=== PATIENT | female | born 2005 | race Caucasian/White ===

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

== ENCOUNTER → 2024-06-23 14:04 | Outpatient (CLI) | payer BC, SELFPAY | PROVIDERS: Family Provider Family Medicine; PCP Family Medicine; Visit Provider Nurse Practitioner Family | DX: R30.0 Dysuria (principal) | CPT/HCPCS: 87086 ==

== ENCOUNTER 2024-06-25 08:38 | Emergency (ER) | payer BC, SELFPAY ==
[2024-06-25] VITALS (10 sets, daily range): BP systolic 102–129; BP diastolic 60–72; PULSE 60–95; RESP 12–16; TEMP 37.1–37.2; O2SAT 97–100; BMI 27.9
--- NOTE | 2024-06-25 08:57 | ED_ITS ---
HPI - Abdominal Pain General Chief Complaint: Back Pain/Injury Stated Complaint: kidney pain Time Seen by Provider: 06/25/24 08:44 History of Present Illness HPI narrative: Patient 19-year-old female history of depression anxiety not currently on medication presenting today with right flank pain. She reports it comes in waves going on for the last 5 days. She does feel nauseous at times no significant vomiting or fever. She is never previously had a kidney stone. Denies any painful frequent urination. Related Data Previous Rx's Medication Instructions Recorded epinephrine 0.3 mg/0.3 mL 0.3 mg (0.3 mL) IM PRN PRN 04/15/22 injection, auto-injector (EpiPen anaphylaxis #2 ea 2-Osvaldo) ondansetron 4 mg disintegrating 4 mg PO Q8H PRN nausea and 06/25/24 tablet vomiting #10 tabs Allergies Allergy/AdvReac Type Severity Reaction Status Date / Time venom-honey bee Allergy Severe ANAPHYLAXIS Verified 04/23/23 11:31 [bee venom (honey bee)] propranolol AdvReac Intermediate Nausea and Verified 04/23/23 11:31 vomiting Patient History Social History Smoking Status: Never smoker Smoking Status: Never smoker alcohol intake frequency: holidays/special occasions only Substance Use Type: does not use Exam Initial Vital Signs Initial Vital Signs: Vital Signs Temperature 98.7 F 06/25/24 08:50 Pulse Rate 94 H 06/25/24 08:50 Respiratory Rate 12 06/25/24 08:50 Blood Pressure 129/67 06/25/24 08:50 Pulse Oximetry 99 06/25/24 08:50 Oxygen Delivery Method Room Air 06/25/24 08:50 GENERAL: Alert 19-year-old female appears to not feel well and in no acute distress. HEENT: Head atraumatic,EOMI, pupils reactive, face symmetric, moist mucous membranes CARDIOVASCULAR: Regular rate and rhythm without murmurs, rubs or gallops. RESPIRATORY: Breath sounds equal bilaterally, no wheezes rales or rhonchi. ABDOMEN: Soft, mild right lower quadrant pain : Mild right flank pain EXTREMITIES: Normal range of motion, no clubbing or edema. Neurovascularly intact NEUROLOGICAL: Alert and oriented x4.Normal gait and speech. Cranial nerves II through XII grossly intact. SKIN: Warm, dry, no laceration, no petechiae, no rashes or lesions. Course Orders Ordered: Discontinued Medications Ketorolac Tromethamine (Ketorolac 30 Mg/Ml Vial) 15 mg IV NOW ONE Stop: 06/25/24 08:58 Last Admin: 06/25/24 09:08 Dose: 15 mg Documented By: VIV Ondansetron HCl (Ondansetron 4 Mg/2 Ml Inj) 4 mg IV NOW ONE Stop: 06/25/24 08:58 Last Admin: 06/25/24 09:07 Dose: 4 mg Documented By: VIV Vital Signs Vital signs: Vital Signs - 8 hr 06/25/24 10:30 06/25/24 10:30 06/25/24 11:00 Temperature Pulse Rate 67 68 Respiratory Rate Blood Pressure 102/60 Pulse Oximetry 98 97 Oxygen Delivery Method 06/25/24 11:00 06/25/24 11:14 06/25/24 11:30 Temperature 98.9 F Pulse Rate 60 Respiratory Rate 16 Blood Pressure 112/67 112/67 105/66 Pulse Oximetry 99 Oxygen Delivery Method Room Air 06/25/24 11:30 06/25/24 11:41 Temperature Pulse Rate 64 Respiratory Rate 16 Blood Pressure Pulse Oximetry 98 Oxygen Delivery Method MDM - Abdominal Pain Lab Data 06/25/24 09:11 06/25/24 09:11 Labs: Lab Results 06/25/24 Range/Units 09:11 WBC 4.3 L (4.5-11.0) X10^3/uL RBC 5.03 (4.0-5.2) X10^6/uL Hgb 13.9 (12.0-16.0) g/dL Hct 41.6 (36-46) % MCV 82.6 (80-100) fL MCH 27.6 (26-34) PG MCHC 33.5 (30-36) % RDW 14.5 (11.6-14.8) % Plt Count 260 (150-400) X10^3/uL Neut % (Auto) 56.5 (50-75) % Lymph % (Auto) 28.8 (25-40) % [place] % (Auto) 8.9 (3-14) % Eos % (Auto) 5.0 H (2-4) % Baso % (Auto) 0.8 (0-2) % Neut # (Auto) 2400 (3802-8752) /uL Lymph # (Auto) 1200 (4160-2420) /uL [place] # (Auto) 400 (0-900) /uL Eos # (Auto) 200 (0-450) /uL Baso # (Auto) 0 (0-100) /uL Sodium 138 (137-145) mmol/L Potassium 4.1 (3.4-5.1) mmol/L Chloride 108 H (98-107) mmol/L Carbon Dioxide 22 (22-32) mmol/L BUN 12 (7-17) mg/dL Creatinine 0.75 (0.52-1.04) mg/dL Estimated GFR > 60 (>60) mL/min BUN/Creatinine Ratio 16.0 (6-22) Glucose 107 H (70-100) mg/dL Calcium 9.3 (8.4-10.2) mg/dL Total Bilirubin 0.4 (0.2-1.3) mg/dL AST 20 (14-36) IU/L ALT 15 (<35) IU/L Alkaline Phosphatase 55 (38-126) U/L Total Protein 8.0 (6.3-8.2) g/dL Albumin 4.6 (3.5-5.0) g/dL Globulin 3.4 (1.7-4.1) g/dL Albumin/Globulin Ratio 1.4 (1.0-2.8) Lipase 52 (23-300) U/L Serum , Qual Negative (Negative) Point of care testing: Urine Dip Bedside Urine Glucose Negative Bedside Urine Bilirubin - Negative Bedside Urine Ketone - Negative Urine Specific [place] 1.025 Bedside Urine Occult Blood - Negative Bedside Urine pH 5.5 Bedside Urine Protein - Negative Bedside Urine Urobilinogen - Negative Bedside Urine Nitrite - Negative Bedside Urine Leukocytes - Negative Esterase Imaging Data CT scan - abdomen/pelvis: Radiologist's Impression: PROCEDURE: CT ABDOMEN PELVIS W CON INDICATIONS: right flank pain and RLQ pain TECHNIQUE: After the administration of intravenous contrast, axial sections acquired from the lung bases to the pubic symphysis. Coronal and sagittal reformats were performed. For radiation dose reduction, the following was used: automated exposure control, adjustment of mA and/or kV according to patient size. COMPARISON: None. FINDINGS: Lower thorax: The lung bases are clear. Heart size normal. No hiatal hernia. Liver: Normal in size and attenuation. No contour deformity present. Biliary system: No calcified cholelithiasis or pericholecystic inflammation. No intra or extrahepatic bile duct dilatation. Pancreas: Unremarkable without mass or inflammation evident. Spleen: Normal in size and density. Adrenals: Normal morphology and density. Reproductive system: Unremarkable as visualized. Urinary system: Normal renal size and attenuation. No renal calculi, hydronephrosis, or solid mass present. Urinary bladder unremarkable. Gastrointestinal system: The bowel is unremarkable without evidence of bowel obstruction or inflammation. The stomach appears unremarkable. Appendix: Normal appendix identified. No evidence of appendicitis. Peritoneal spaces: No mesenteric or retroperitoneal adenopathy. No free air. Small amount of free fluid in the right adnexa Vasculature: The IVC, aorta and iliac vasculature are unremarkable. Abdominal wall: Abdominal wall intact without evidence of ventral or inguinal hernias. Musculoskeletal: Normal bone mineralization. No acute fractures. IMPRESSION: Normal appendix. No evidence of appendicitis. Small amount of free fluid in the pelvis right adnexa Approved by: Karl Robbins M.D. on 06/25/2024 at 9:44 MDM Narrative Medical decision making narrative: MDM CC: Right flank pain Complicating co-morbidities: Depression anxiety no prior kidney stone Medical records reviewed: Presented to walk-in clinic yesterday for right flank pain. Urinalysis show +blood but no leukocytes or nitrates and diagnosed with an upper respiratory infection. Differential considered: Nephrolithiasis appendicitis, cholecystitis cholelithiasis Exam documented above, pertinent findings include: Appears to not feel well has some mild right lower quadrant pain and right flank pain vitals are stable Lab Test results independently reviewed as above. Pertinent findings: CBC WBC is 4.3 no anemia CMP no electrolyte abnormality creatinine 0.75 Urinalysis negative for blood protein nitrates Imaging studies independently reviewed: CT no appendicitis no nephrolithiasis Consultations: None Treatments: Zofran Toradol Re-evaluations: Pain slightly improved she does seem to be more tender in upper quadrants however she has a negative Grullon's sign Discussion: Patient 19-year-old female presents today with right flank pain with intermittent nausea for the last few days. Concern initially was for nephrolithiasis. At this time CT blood work overall reassuring. sHe is reexamined she really has a negative Grullon's sign. No significant elevation bilirubin. CT did not show any cholelithiasis or evidence of acute cholecystitis. Discussion with patient and mother in regards to findings. Recommend supportive care with anti nausea medication pain meds at this time. Return symptoms are worsening Discharge Plan Departure Patient Disposition: Home Clinical Impression: Abdominal pain Instructions: DI for Abdominal Pain-Adult Activity Restrictions/Additional Instructions: *You have been diagnosed with abdominal pain *What to do: At this time blood work and CT are overall reassuring. Unclear what is causing her pain and nausea today. Increase fluids as tolerated *Continue to take medications as directed Zofran 4 mg every 8 hours if needed for nausea or vomiting Motrin 600 mg every 6 hours if needed for lrrg-sa-[id number] pain Tylenol 1000 mg every 6 hours if needed for [id number] pain *Follow up with your primary care provider in 2-3 days or call [phone] *Return to ER if you should have increased pain nausea vomiting or any new, worsening or concerning symptoms Prescriptions: New ondansetron 4 mg tablet,disintegrating 4 mg PO Q8H PRN (Reason: nausea and vomiting) Qty: 10 0RF No Action epinephrine [EpiPen 2-Osvaldo] 0.3 mg/0.3 mL auto-injector 0.3 mg IM PRN PRN (Reason: anaphylaxis) Qty: 2 2RF Referrals: Jam Crocker MD [Primary Care Provider] - Stand Alone Forms: Patient Portal/API
[2024-06-25] MEDS: ONDANSETRON 4 MG/2 ML INJ IV (09:07)
[2024-06-25] MEDS: KETOROLAC 30 MG/ML VIAL 15 MG IV (09:08)
[2024-06-25 09:20] LABS: Add Manual Diff / Slide Review NO; Basophils Absolute Auto 0 /uL (0-100); Basophils Percent Auto 0.8 % (0-2); Eosinophils Absolute Auto 200 /uL (0-450); Hematocrit 41.6 % (36-46); Hemoglobin 13.9 g/dL (12.0-16.0); Lymphocytes Absolute Auto 1200 /uL (1100-4500); Lymphocytes Percent Auto 28.8 % (25-40); Mean Corpuscular HGB Conc 33.5 % (30-36); Mean Corpuscular Hemoglobin 27.6 PG (26-34); Mean Corpuscular Volume 82.6 fL (80-100); Monocytes Absolute Auto 400 /uL (0-900); Monocytes Percent Auto 8.9 % (3-14); Neutrophils Absolute Auto 2400 /uL (1500-7000); Neutrophils Percent Auto 56.5 % (50-75); Platelet Count 260 X10^3/uL (150-400); Red Blood Cell Count 5.03 X10^6/uL (4.0-5.2); Red Cell Distribution Width 14.5 % (11.6-14.8); White Blood Cell Count 4.3 X10^3/uL (4.5-11.0)
--- NOTE | 2024-06-25 09:20 | PC.NURSE ---
Lower back pain. States that she has no hx of kidney stones. Pt denies changes in urinary color. Pt states she has been going to the bathroom every couple hours; and only been able to produce a little bit of urine. Pt denies chances of . Pt states the pain has been getting worse over the last several days.
[2024-06-25 09:31] LABS: Alanine Aminotransferase 15 IU/L (<35); Albumin 4.6 g/dL (3.5-5.0); Albumin Globulin Ratio 1.4 (1.0-2.8); Alkaline Phosphatase 55 U/L (38-126); Aspartate Aminotransferase 20 IU/L (14-36); Bilirubin Total 0.4 mg/dL (0.2-1.3); Blood Urea Nitrogen 12 mg/dL (7-17); Calcium 9.3 mg/dL (8.4-10.2); Carbon Dioxide 22 mmol/L (22-32); Chloride 108 mmol/L (98-107); Estimated Glomerular Filt Rate > 60 mL/min (>60); Globulin 3.4 g/dL (1.7-4.1); Glucose 107 mg/dL (70-100); HEMOLYSIS < 15 (0-50); Lipase 52 U/L (23-300); Potassium 4.1 mmol/L (3.4-5.1); Sodium 138 mmol/L (137-145)
[2024-06-25 09:36] LABS: Pregnancy Test Serum,Qual Negative (Negative)
--- NOTE | 2024-06-25 11:40 | PC.NURSE ---
Tender to palpation in right lower back. Pt denies trauma, does not think she slept weird, denies picking up anything heavy
== END 2024-06-25 11:42 | disposition home or self-care (01) ==
PROVIDERS: Emergency Provider Emergency Medicine; Family Provider Family Medicine; PCP Family Medicine
DX: R10.31 Right lower quadrant pain (principal)
CPT/HCPCS: 74177; 80053; 81003; 83690; 84703; 85025; 96374; 96375; 99283; 99284; J1885; J2405; Q9967

== ENCOUNTER → 2024-07-01 08:52 | Outpatient (CLI) | payer BC, SELFPAY | PROVIDERS: Family Provider Family Medicine; PCP Family Medicine; Visit Provider Nurse Practitioner Family | DX: N94.89 Other specified conditions associated with female genital organs and menstrual cycle (principal) | CPT/HCPCS: 87210 ==

== ENCOUNTER 2024-07-01 09:23 | Emergency (ER) | payer BC, SELFPAY ==
[2024-07-01] VITALS (9 sets, daily range): BP systolic 103–143; BP diastolic 58–82; PULSE 62–98; RESP 16; TEMP 36.9; O2SAT 98–100; BMI 28.1
--- NOTE | 2024-07-01 09:31 | ED_ITS ---
HPI - Abdominal Pain General Chief Complaint: Abdominal Pain Stated Complaint: Upper back pain and Stomach pain sent from [facility] Time Seen by Provider: 07/01/24 09:29 History of Present Illness HPI narrative: 19-year-old female with no prior abdominopelvic surgeries, denies history of prior kidney stones, prior ovarian cysts, has ongoing 2 weeks duration of right flank and now right upper and mid abdominal discomfort, seen here for right flank pain symptoms on 06/25/2024, hCG negative at that time, urine dip negative, unremarkable labs, CT abdomen and pelvis at that time showed some free fluid present, no other abnormalities, pain symptoms seemed to be persisting, somewhat worse with movement. She denies injury trauma new activities. She has had dry cough for similar time frame, denies shortness of breath. Related Data Previous Rx's Medication Instructions Recorded epinephrine 0.3 mg/0.3 mL 0.3 mg (0.3 mL) IM PRN PRN 04/15/22 injection, auto-injector (EpiPen anaphylaxis #2 ea 2-Osvaldo) ondansetron 4 mg disintegrating 4 mg PO Q8H PRN nausea and 06/25/24 tablet vomiting #10 tabs Allergies Allergy/AdvReac Type Severity Reaction Status Date / Time venom-honey bee Allergy Severe ANAPHYLAXIS Verified 07/01/24 08:51 [bee venom (honey bee)] propranolol AdvReac Intermediate Nausea and Verified 07/01/24 08:51 vomiting Review of Systems Review of Systems Narrative: see HPI Patient History Social History Smoking Status: Never smoker Smoking Status: Never smoker alcohol intake frequency: holidays/special occasions only Substance Use Type: does not use Exam Narrative Exam Narrative: GENERAL: Well-developed patient, in mild distress. Nontoxic appearing HEAD: Atraumatic. Normocephalic. EYES: Pupils equal round and reactive. Extraocular motions intact. No scleral icterus. No injection or drainage. ENT: Nose without bleeding, purulent drainage. Throat without erythema, tonsillar hypertrophy or exudate. Airway patent. NECK: Trachea midline. Non tender CARDIOVASCULAR: Regular rate and rhythm without murmurs, gallops, or rubs. RESPIRATORY: Clear to auscultation. Breath sounds equal bilaterally. No wheezes, rales, or rhonchi. GASTROINTESTINAL: Some tenderness to right upper quadrant, no guarding or rebound, less tender right middle quadrant, some tenderness also right lower quadrant. Abdomen soft, non-tender, nondistended. EXTREMITIES: No edema or joint tenderness. BACK: Nontender without deformity or crepitance. No flank tenderness. NEURO: AOx3. Motor functions grossly nonfocal SKIN: No rash or erythema of visible areas Initial Vital Signs Initial Vital Signs: Vital Signs Pulse Rate 98 H 07/01/24 09:27 Blood Pressure 143/76 H 07/01/24 09:27 Pulse Oximetry 99 07/01/24 09:27 Course Orders Ordered: Discontinued Medications Ketorolac Tromethamine (Ketorolac 30 Mg/Ml Vial) 15 mg IV NOW ONE Stop: 07/01/24 09:50 Last Admin: 07/01/24 10:01 Dose: 15 mg Documented By: BARBARA Ondansetron HCl (Ondansetron 4 Mg/2 Ml Inj) 4 mg IV NOW ONE Stop: 07/01/24 10:49 Last Admin: 07/01/24 10:53 Dose: 4 mg Documented By: BARBARA Vital Signs Vital signs: Vital Signs - 8 hr 07/01/24 09:27 07/01/24 09:27 07/01/24 09:28 Temperature 98.5 F Pulse Rate 98 H 94 H Respiratory Rate 16 Blood Pressure 143/76 H 143/76 H Pulse Oximetry 99 98 Oxygen Delivery Method Room Air 07/01/24 09:30 07/01/24 09:30 07/01/24 09:38 Temperature Pulse Rate 88 Respiratory Rate Blood Pressure 126/64 132/67 Pulse Oximetry 100 Oxygen Delivery Method 07/01/24 09:38 07/01/24 10:00 07/01/24 10:00 Temperature Pulse Rate 88 81 Respiratory Rate Blood Pressure 122/73 Pulse Oximetry 100 99 Oxygen Delivery Method 07/01/24 10:30 07/01/24 10:30 Temperature Pulse Rate 70 Respiratory Rate Blood Pressure 118/82 Pulse Oximetry 99 Oxygen Delivery Method MDM - Abdominal Pain Lab Data Attestation: I reviewed the patient's lab results. Lab results narrative: White blood cell count 5800, hemoglobin 13.6, platelets adequate. CMP unremarkable including electrolytes and glucose and LFTs, lipase normal. Urine dip negative. HCG negative 07/01/24 09:36 07/01/24 09:36 Labs: Lab Results 07/01/24 07/01/24 Range/Units 09:36 09:40 WBC 5.8 (4.5-11.0) X10^3/uL RBC 4.95 (4.0-5.2) X10^6/uL Hgb 13.6 (12.0-16.0) g/dL Hct 40.9 (36-46) % MCV 82.6 (80-100) fL MCH 27.4 (26-34) PG MCHC 33.2 (30-36) % RDW 14.6 (11.6-14.8) % Plt Count 314 (150-400) X10^3/uL Neut % (Auto) 70.0 (50-75) % Lymph % (Auto) 19.5 L (25-40) % [place] % (Auto) 7.9 (3-14) % Eos % (Auto) 2.1 (2-4) % Baso % (Auto) 0.5 (0-2) % Neut # (Auto) 4100 (6949-5819) /uL Lymph # (Auto) 1100 (8186-9438) /uL [place] # (Auto) 500 (0-900) /uL Eos # (Auto) 100 (0-450) /uL Baso # (Auto) 0 (0-100) /uL Sodium 139 (137-145) mmol/L Potassium 3.6 (3.4-5.1) mmol/L Chloride 105 (98-107) mmol/L Carbon Dioxide 24 (22-32) mmol/L BUN 13 (7-17) mg/dL Creatinine 0.77 (0.52-1.04) mg/dL Estimated GFR > 60 (>60) mL/min BUN/Creatinine Ratio 16.9 (6-22) Glucose 106 H (70-100) mg/dL Calcium 9.5 (8.4-10.2) mg/dL Total Bilirubin 0.6 (0.2-1.3) mg/dL AST 21 (14-36) IU/L ALT 14 (<35) IU/L Alkaline Phosphatase 47 (38-126) U/L Total Protein 8.3 H (6.3-8.2) g/dL Albumin 4.7 (3.5-5.0) g/dL Globulin 3.6 (1.7-4.1) g/dL Albumin/Globulin Ratio 1.3 (1.0-2.8) Lipase 51 (23-300) U/L HCG, Quant < 2.39 mIU/mL Urine RBC 0-1/hpf (0-5/HPF) Urine WBC 0-1/hpf (0-5/HPF) Ur Squamous Epith Cells 0-1 /hpf (0-5/HPF) Amorphous Sediment 1+ Urine Bacteria Occasional (0-1) (None) Ur Culture Indicated? Cult not indicated Vol Urine Centrifuged 10ml (spun) Ur Chlamydia DNA (PCR) Not detected N gonorrhoeae DNA (PCR) Not detected Point of care testing: Point of Care Testing Test Results Negative Urine Dip Bedside Urine Glucose Negative Bedside Urine Bilirubin - Negative Bedside Urine Ketone ++ 40 Urine Specific [place] 1.030 Bedside Urine Occult Blood - Negative Bedside Urine pH 6.0 Bedside Urine Protein +/- 15 Bedside Urine Urobilinogen - Negative Bedside Urine Nitrite - Negative Bedside Urine Leukocytes - Negative Esterase Imaging Data Ultrasound right upper quadrant abdomen: Radiologist's Impression: [address] [address] Ultrasound Report Signed Patient: Rossy Wright MR#: [id number] : 2005 Acct:[id number] Age/Sex: 19 / F Date of Service: 07/01/24 Loc: ED Accession Number: [id number] Procedure: US abdomen limited Ordering Provider: Roque Panchal MD PROCEDURE: US ABDOMEN LIMITED INDICATIONS: RUQ PAIN TECHNIQUE: Real-time focused scanning was performed of the abdomen, with image documentation. COMPARISON: [facility], US, US PELVIC COMPLETE, 07/01/2024, 10:17. [facility], CT, CT ABDOMEN PELVIS W CON, 06/25/2024, 9:06. FINDINGS: Liver measures 14.6 cm. Gallbladder demonstrates no stones. Wall thickness is normal. Common bile duct measures 4 mm. Visualized portions of the pancreas are unremarkable. IMPRESSION: Unremarkable exam. Dictated by: Catia Rodriguez M.D. on 07/01/2024 at 11:06 Approved by: Catia Rodriguez M.D. on 07/01/2024 at 11:06 Pelvic ultrasound: Radiologist's Impression: [address] [address] Ultrasound Report Signed Patient: Rossy Wright MR#: [id number] : 2005 Acct:[id number] Age/Sex: 19 / F Date of Service: 07/01/24 Loc: ED Accession Number: [id number] Procedure: US pelvic complete Ordering Provider: Roque Panchal MD PROCEDURE: US PELVIC COMPLETE INDICATIONS: RIGHT PELVIC PAIN TECHNIQUE: Real-time scanning was performed of the pelvic organs, with image documentation. Additional endovaginal scanning was necessary due to incomplete visualization of the adnexal and endometrial structures by transabdominal scanning. COMPARISON: None. FINDINGS: Uterus: Uterus is anteverted and normal in size at 7.7 x 3.3 x 4.6 cm. The myometrium is homogeneous. The endometrium measures 1.9 mm combined thickness. Ovaries: The right ovary measures 3.5 x 2.0 x 3.0 cm, with a calculated ovarian volume of 11 cc. The left ovary measures 2.4 x 3.2 x 2.3 cm, with a calculated ovarian volume of 9.4 cc. The ovaries have a normal sonographic appearance. Less than 12 follicles can be seen in each ovary. No adnexal masses are seen. Other: No pathologic free abdominal or pelvic fluid. IMPRESSION: Unremarkable exam. We strive to produce accurate, complete, and clear reports of imaging services. To assist us in improving patient care, this report was composed using standard report templates and voice recognition software. Therefore, it may contain abnormal punctuation, insertions and/or omissions. Occasional wrong-word or sound-alike substitutions may occur. Though we review the report and make efforts to correct it, we do recommend that the report be read carefully in proper context to recognize any text inaccuracies. Dictated by: Catia Rodriguez M.D. on 07/01/2024 at 11:05 Approved by: Catia Rodriguez M.D. on 07/01/2024 at 11:06 [facility] Narrative Medical decision making narrative: 19-year-old female with ongoing right flank now right upper quadrant and right lower quadrant abdominal discomfort, recent evaluation 06/25/2024, CT scan at that time negative, did show free fluid, hCG negative that visit, urine dip negative. Has had ongoing pain, not responsive to [id number] Tylenol or Motrin. Afebrile on triage, on examination seems to have more tenderness right upper quadrant than mid lower right abdomen. Duration of symptoms and presence of free fluid, consider recently ruptured ovarian cyst. Seen unlikely to have appendicitis. Consider biliary colic though this seems less likely. We will hold on repeat CT scanning at this time. Ultrasound requested pelvis, also asked for right upper quadrant abdominal imaging. Urine test sent from triage already, noted to be negative, hCG was noted negative on previous visit. She would like some pain medication, responded to Toradol last visit, we would like Toradol again, ordered. Ultrasound gallbladder unremarkable, ultrasound pelvis unremarkable, scant free fluid cul-de-sac noted, sono tech prelim report. She would mentioned fluid- filled bowel, patient has had some diarrhea. We will ask for GI enteric pathogen studies if a stool specimen is received. Await radiology reports of the ultrasound studies. Screening lab results unremarkable, no elevated white blood cell count, LFTs and lipase normal. Urine dip negative. HCG was noted negative above Ultrasound right upper quadrant abdomen unremarkable, ultrasound pelvic study results unremarkable. See radiologist reports. Urine GC chlamydia negative, stool study requested if any sample received. Patient seems comfortable after IV Toradol. We discussed repeat CT imaging, likely not worth risks of radiation at this time, hold for now Advised use of OTC analgesics for discharge, consider OTC antacid, consider OTC laxative. Recheck with your regular provider. Home with family Discharge Plan Departure Patient Disposition: Home Clinical Impression: Abdominal pain Activity Restrictions/Additional Instructions: Recent evaluation for ongoing abdominal discomfort last couple of weeks, right- sided, previous CT scan abdomen and pelvis showed no definite acute cause of symptoms, still having right-sided symptoms, repeat labs again today looked very reassuring and normal. No fever, normal vital signs noted again today. Minimal tenderness to right upper quadrant on exam but there was some present. We did do ultrasound of the right upper quadrant of the abdomen that was unremarkable. We also added ultrasound of the pelvis to see if there is an explanation for symptoms in that region, also unremarkable. Per radiology reports. Urine screening for chlamydia and gonorrhea was unremarkable. It is possible you might have some kind of musculoskeletal reason for your discomfort. Consider Tylenol and or Motrin for your discomfort. If you had acid related problems for your upper abdominal discomfort, and antacid [id number] might be useful. If you have any constipation or hard stool problems related to abdominal discomfort than [id number] laxative might be useful to try. We did discuss repeat CT abdomen and pelvis imaging for now, declined for now. Recheck symptoms with your regular doctor Thursday in scheduled clinic visit as planned. Rechecked to this/nearest emergency department for any change worsening symptoms or any concerns prior Prescriptions: No Action epinephrine [EpiPen 2-Osvaldo] 0.3 mg/0.3 mL auto-injector 0.3 mg IM PRN PRN (Reason: anaphylaxis) Qty: 2 2RF ondansetron 4 mg tablet,disintegrating 4 mg PO Q8H PRN (Reason: nausea and vomiting) Qty: 10 0RF Referrals: Jam Crocker MD [Primary Care Provider] - Stand Alone Forms: Patient Portal/API
[2024-07-01 09:45] LABS: Add Manual Diff / Slide Review NO; Basophils Absolute Auto 0 /uL (0-100); Basophils Percent Auto 0.5 % (0-2); Eosinophils Absolute Auto 100 /uL (0-450); Eosinophils Percent Auto 2.1 % (2-4); Hematocrit 40.9 % (36-46); Hemoglobin 13.6 g/dL (12.0-16.0); Lymphocytes Absolute Auto 1100 /uL (1100-4500); Lymphocytes Percent Auto 19.5 % (25-40); Mean Corpuscular HGB Conc 33.2 % (30-36); Mean Corpuscular Hemoglobin 27.4 PG (26-34); Mean Corpuscular Volume 82.6 fL (80-100); Monocytes Absolute Auto 500 /uL (0-900); Monocytes Percent Auto 7.9 % (3-14); Neutrophils Absolute Auto 4100 /uL (1500-7000); Platelet Count 314 X10^3/uL (150-400); Red Blood Cell Count 4.95 X10^6/uL (4.0-5.2); Red Cell Distribution Width 14.6 % (11.6-14.8); White Blood Cell Count 5.8 X10^3/uL (4.5-11.0)
--- NOTE | 2024-07-01 09:50 | DI.US.S_ITS ---
PROCEDURE: US PELVIC COMPLETE INDICATIONS: RIGHT PELVIC PAIN TECHNIQUE: Real-time scanning was performed of the pelvic organs, with image documentation. Additional endovaginal scanning was necessary due to incomplete visualization of the adnexal and endometrial structures by transabdominal scanning. COMPARISON: None. FINDINGS: Uterus: Uterus is anteverted and normal in size at 7.7 x 3.3 x 4.6 cm. The myometrium is homogeneous. The endometrium measures 1.9 mm combined thickness. Ovaries: The right ovary measures 3.5 x 2.0 x 3.0 cm, with a calculated ovarian volume of 11 cc. The left ovary measures 2.4 x 3.2 x 2.3 cm, with a calculated ovarian volume of 9.4 cc. The ovaries have a normal sonographic appearance. Less than 12 follicles can be seen in each ovary. No adnexal masses are seen. Other: No pathologic free abdominal or pelvic fluid. IMPRESSION: Unremarkable exam. We strive to produce accurate, complete, and clear reports of imaging services. To assist us in improving patient care, this report was composed using standard report templates and voice recognition software. Therefore, it may contain abnormal punctuation, insertions and/or omissions. Occasional wrong-word or sound-alike substitutions may occur. Though we review the report and make efforts to correct it, we do recommend that the report be read carefully in proper context to recognize any text inaccuracies. Dictated by: Catia Rodriguez M.D. on 07/01/2024 at 11:05 Approved by: Catia Rodriguez M.D. on 07/01/2024 at 11:06
--- NOTE | 2024-07-01 09:52 | DI.US.S_ITS ---
PROCEDURE: US ABDOMEN LIMITED INDICATIONS: RUQ PAIN TECHNIQUE: Real-time focused scanning was performed of the abdomen, with image documentation. COMPARISON: [facility], US, US PELVIC COMPLETE, 07/01/2024, 10:17. [facility], CT, CT ABDOMEN PELVIS W CON, 06/25/2024, 9:06. FINDINGS: Liver measures 14.6 cm. Gallbladder demonstrates no stones. Wall thickness is normal. Common bile duct measures 4 mm. Visualized portions of the pancreas are unremarkable. IMPRESSION: Unremarkable exam. Dictated by: Catia Rodriguez M.D. on 07/01/2024 at 11:06 Approved by: Catia Rodriguez M.D. on 07/01/2024 at 11:06
[2024-07-01 09:53] LABS: Alanine Aminotransferase 14 IU/L (<35); Albumin 4.7 g/dL (3.5-5.0); Albumin Globulin Ratio 1.3 (1.0-2.8); Alkaline Phosphatase 47 U/L (38-126); Aspartate Aminotransferase 21 IU/L (14-36); BUN Creatinine Ratio 16.9 (6-22); Bilirubin Total 0.6 mg/dL (0.2-1.3); Blood Urea Nitrogen 13 mg/dL (7-17); Calcium 9.5 mg/dL (8.4-10.2); Carbon Dioxide 24 mmol/L (22-32); Chloride 105 mmol/L (98-107); Estimated Glomerular Filt Rate > 60 mL/min (>60); Globulin 3.6 g/dL (1.7-4.1); Glucose 106 mg/dL (70-100); HEMOLYSIS < 15 (0-50); Lipase 51 U/L (23-300); Potassium 3.6 mmol/L (3.4-5.1); Sodium 139 mmol/L (137-145); Total Protein 8.3 g/dL (6.3-8.2)
[2024-07-01] MEDS: KETOROLAC 30 MG/ML VIAL 15 MG IV (10:01)
[2024-07-01 10:10] LABS: HCG Quantitative /Beta subunit < 2.39 mIU/mL
[2024-07-01 10:16] LABS: Amorphous Sediment Urine 1+; Bacteria Urine Occasional (0-1); Culture Indicated Urine Cult Not Indicated; RBC Urine 0-1/HPF (0-5/HPF); Squamous Epithelial Cell Urine 0-1 /HPF (0-5/HPF); Urine Volume 10mL (spun); WBC Urine 0-1/HPF (0-5/HPF)
[2024-07-01] MEDS: ONDANSETRON 4 MG/2 ML INJ IV (10:53)
[2024-07-01 11:15] LABS: Urine N gonorrhoeae NOT DETECTED
[2024-07-01 11:17] LABS: Urine Chlamydia NOT DETECTED
== END 2024-07-01 12:58 | disposition home or self-care (01) ==
PROVIDERS: Emergency Provider Emergency Medicine; Family Provider Family Medicine; PCP Family Medicine
DX: R10.11 Right upper quadrant pain (principal); R10.2 Pelvic and perineal pain; N94.89 Other specified conditions associated with female genital organs and menstrual cycle
CPT/HCPCS: 36415; 76705; 76830; 76856; 80053; 81003; 81015; 81025; 83690; 84702; 85025; 87210; 87491; 87591; 93976; 96374; 96375; 99284; J1885; J2405